=== PATIENT | male | born 1990 | race Caucasian/White ===

== ENCOUNTER 2018-02-03 18:12 | Emergency (ER) | payer SELFPAY | END 2018-02-03 19:00 | disposition home or self-care (01) | LOC: D.ER 18:12 | DX: J02.9 Acute pharyngitis, unspecified (principal); F17.200 Nicotine dependence, unspecified, uncomplicated ==

== ENCOUNTER 2018-05-28 12:40 | Emergency (ER) | payer BC ==
[~2018-05-28] VITALS: Ht 170.2 cm; Wt 75.0 kg
[2018-05-28 13:01] VITALS: Ht 170.2 cm; Wt 75.0 kg
[2018-05-28] MEDS ORDERED: MOTRIN600 MG (13:04)
[2018-05-28 13:29] LABS: BASOPHILS 0.9 % (0-2); EOSINOPHILS 9.4 % (0-7); HEMATOCRIT 40.5 % (42.0-54.0); HEMOGLOBIN 13.7 g/dL (13.5-17.5); IMMATURE GRANULOCYTES 0.2 % (0-5); LYMPHOCYTES 40.2 % (15-50); MCH 29.1 pg (26.0-34.0); MCHC 33.8 g/dL (31.0-37.0); MEAN PLATELET VOLUME 9.1 fL (7.4-10.4); MONOCYTES 7.6 % (2-11); NEUTROPHILS 41.7 % (40-80); PLATELET COUNT 224 10x3/uL (130-400); RBC 4.71 10x6/uL (4.20-6.10); RDW 13.2 % (11.5-14.5); WBC 6.5 10x3/uL (4.8-10.8)
[2018-05-28 13:46] LABS: ALBUMIN 3.6 g/dL (3.4-5.0); ALKALINE PHOSPHATASE 66 U/L (46-116); ALT (SGPT) 18 U/L (10-68); AMYLASE - SERUM 116 U/L (25-115); BILIRUBIN - TOTAL 0.23 mg/dL (0.2-1.3); CALC OSMOLALITY 275 mosm/kg (275-300); CALCIUM 8.8 mg/dL (8.5-10.1); CARBON DIOXIDE 33.2 mmol/L (21.0-32.0); CHLORIDE - SERUM 104 mmol/L (98-107); CREATININE - SERUM 0.9 mg/dL (0.6-1.3); GLUCOSE 92 mg/dL (74-106); LIPASE 195 U/L (73-393); POTASSIUM - SERUM 4.2 mmol/L (3.5-5.1); PROTEIN - SERUM 7.5 g/dL (6.4-8.2); SODIUM 139 mmol/L (136-145); UREA NITROGEN 6 mg/dL (7-18); eGFR NON AFRICAN AMERICAN > 90 mL/min (90-120)
[2018-05-28 18:41] LABS: APPEARANCE CLEAR (CLEAR); BILIRUBIN NEGATIVE (NEGATIVE); COLOR YELLOW (YELLOW); GLUCOSE NEGATIVE (NEGATIVE); KETONE NEGATIVE (NEGATIVE); NITRITE NEGATIVE (NEGATIVE); PROTEIN NEGATIVE (NEGATIVE); UROBILINOGEN NORMAL (NORMAL)
[2018-05-28] MEDS ORDERED: LOMOTIL TABLET1 TAB PO (18:44)
[2018-05-28] MEDS ORDERED: CIPRO500 MG PO (18:44)
[2018-05-28 19:00] VITALS: BP 124/71
== END 2018-05-28 19:00 | disposition home or self-care (01) ==
LOC: D.ER 12:40
PROVIDERS: Emergency Medicine
DX: A08.4 Viral intestinal infection, unspecified (principal); R10.9 Unspecified abdominal pain; F17.200 Nicotine dependence, unspecified, uncomplicated

== ENCOUNTER 2018-08-28 19:17 | Emergency (ER) | payer BC ==
[~2018-08-28] VITALS: Ht 170.2 cm; Wt 79.5 kg
[~2018-08-28 19:17] MED LIST: CIPRO500 MG PO; LOMOTIL TABLET1 TAB PO; MOTRIN600 MG
[2018-08-28 19:28] VITALS: Ht 170.2 cm; Wt 79.5 kg
[2018-08-28 20:32] VITALS: BP 135/87
== END 2018-08-28 20:29 | disposition home or self-care (01) ==
LOC: D.ER 19:17
DX: J06.9 Acute upper respiratory infection, unspecified (principal); F17.200 Nicotine dependence, unspecified, uncomplicated

== ENCOUNTER 2019-09-13 11:52 | Emergency (ER) | payer BC ==
[~2019-09-13] VITALS: Ht 170.2 cm; Wt 81.8 kg
[2019-09-13 11:55] VITALS: Ht 170.2 cm; Wt 81.8 kg
[2019-09-13] MEDS ORDERED: FLUTICASONE PRO16 GM NASAL (12:51)
[2019-09-13] MEDS ORDERED: ZYRTEC10 MG PO (12:51)
[2019-09-13] MEDS ORDERED: AUGMENTIN 875-11 TAB PO (12:51)
[2019-09-13 13:15] VITALS: BP 135/70
== END 2019-09-15 11:03 | disposition home or self-care (01) ==
LOC: D.ER 11:52
DX: H66.91 Otitis media, unspecified, right ear (principal); J30.9 Allergic rhinitis, unspecified

== ENCOUNTER 2019-12-12 10:48 | Emergency (ER) | payer BC ==
[~2019-12-12] VITALS: Ht 170.2 cm; Wt 84.1 kg
[~2019-12-12 10:48] MED LIST changes: +AUGMENTIN 875-11 TAB PO; +FLUTICASONE PRO16 GM NASAL; +ZYRTEC10 MG PO
[2019-12-12 10:57] VITALS: Ht 170.2 cm; Wt 84.1 kg
[2019-12-12 11:36] LABS: BASOPHILS 0.7 % (0-2); EOSINOPHILS 4.8 % (0-7); HEMOGLOBIN 14.7 g/dL (13.5-17.5); IMMATURE GRANULOCYTES 0.1 % (0-5); LYMPHOCYTES 38.1 % (15-50); MCH 29.8 pg (26.0-34.0); MCHC 34.2 g/dL (31.0-37.0); MCV 87.2 fL (80.0-100.0); MEAN PLATELET VOLUME 9.4 fL (7.4-10.4); MONOCYTES 8.3 % (2-11); PLATELET COUNT 229 10x3/uL (130-400); RBC 4.93 10x6/uL (4.20-6.10); WBC 7.5 10x3/uL (4.8-10.8)
[2019-12-12 11:43] LABS: CALC OSMOLALITY 271 mosm/kg (275-300); CALCIUM 8.9 mg/dL (8.5-10.1); CHLORIDE - SERUM 103 mmol/L (98-107); CREATININE - SERUM 0.9 mg/dL (0.6-1.3); GLUCOSE 104 mg/dL (74-106); SODIUM 137 mmol/L (136-145); UREA NITROGEN 8 mg/dL (7-18); eGFR NON AFRICAN AMERICAN > 90 mL/min (90-120)
[2019-12-12 11:52] LABS: ALBUMIN 3.9 g/dL (3.4-5.0); ALKALINE PHOSPHATASE 63 U/L (30-120); ALT (SGPT) 23 U/L (10-68); AMYLASE - SERUM 130 U/L (25-115); BILIRUBIN - TOTAL 0.16 mg/dL (0.2-1.3); LIPASE 419 U/L (73-393); PROTEIN - SERUM 7.7 g/dL (6.4-8.2); TROPONIN-I < 0.017 ng/mL (0.000-0.060)
[2019-12-12 12:10] LABS: BACTERIA FEW /hpf (NEGATIVE); BILIRUBIN NEGATIVE (NEGATIVE); EPITHELIAL CELLS OCC /hpf (0-5); GLUCOSE NEGATIVE (NEGATIVE); KETONE NEGATIVE (NEGATIVE); NITRITE NEGATIVE (NEGATIVE); UROBILINOGEN NORMAL (NORMAL); WHITE CELLS - URINE NSEEN /hpf (NEGATIVE)
[2019-12-12] MEDS ORDERED: ZOFRAN ODT4 MG/UDTAB PO (13:30)
[2019-12-12 14:09] VITALS: BP 144/80
== END 2019-12-12 13:54 | disposition home or self-care (01) ==
LOC: D.ER 10:48
PROVIDERS: Family Medicine
DX: R10.31 Right lower quadrant pain (principal)

== ENCOUNTER 2020-01-06 17:01 | Emergency (ER) | payer MEDICAID ==
[~2020-01-06] VITALS: Ht 170.2 cm; Wt 84.1 kg
[~2020-01-06 17:01] MED LIST changes: +ZOFRAN ODT4 MG/UDTAB PO
[2020-01-06 17:09] VITALS: Ht 170.2 cm; Wt 84.1 kg
[2020-01-06] MEDS ORDERED: AUGMENTIN 875-11 TAB PO (19:02)
[2020-01-06] MEDS ORDERED: FLOXIN 0.3 % OTI5 ML LEFT EAR (19:02)
[2020-01-06 19:12] VITALS: BP 133/85
== END 2020-01-06 19:10 | disposition home or self-care (01) ==
LOC: D.ER 17:01
DX: J01.90 Acute sinusitis, unspecified (principal); H60.92 Unspecified otitis externa, left ear; R05 Cough; R06.02 Shortness of breath; R50.9 Fever, unspecified; Z72.0 Tobacco use

== ENCOUNTER 2020-02-21 11:58 | Emergency (ER) | payer MEDICAID ==
[~2020-02-21] VITALS: Ht 170.2 cm; Wt 81.8 kg
[~2020-02-21 11:58] MED LIST changes: +FLOXIN 0.3 % OTI5 ML LEFT EAR
[2020-02-21 12:10] VITALS: Ht 170.2 cm; Wt 81.8 kg
[2020-02-21] MEDS ORDERED: AMOXICILLIN875 MG PO (12:45)
[2020-02-21 13:00] VITALS: BP 128/87
== END 2020-02-21 13:02 | disposition home or self-care (01) ==
LOC: D.ER 11:58
DX: J02.0 Streptococcal pharyngitis (principal); R05 Cough; Z72.0 Tobacco use

== ENCOUNTER 2020-06-03 16:46 | Emergency (ER) | payer MEDICAID ==
[~2020-06-03] VITALS: Ht 170.2 cm; Wt 77.3 kg
[~2020-06-03 16:46] MED LIST changes: +AMOXICILLIN875 MG PO
[2020-06-03 16:57] VITALS: BP 153/81; Ht 170.2 cm; Wt 77.3 kg
[2020-06-03] MEDS ORDERED: AMOXICILLIN500 M1 PO (17:25)
== END 2020-06-03 17:55 | disposition home or self-care (01) ==
LOC: D.ER 16:46
DX: J02.9 Acute pharyngitis, unspecified (principal); Z72.0 Tobacco use; R50.9 Fever, unspecified

== ENCOUNTER 2021-03-09 09:21 | Emergency (ER) | payer BC ==
[~2021-03-09] VITALS: Ht 170.2 cm; Wt 63.6 kg
[~2021-03-09 09:21] MED LIST changes: +ALBUTEROL SULF8.5 GM INH; +AMOXICILLIN500 M1 PO; +HYDROCODON-ACE1 EAC7 PO; +LOMOTIL 2.5-0.1 EAC1 PO; +MUCINEX DM ER1 EAC1 PO; +PROTONIX40 MG PO; +STERAPRED DS 1010 MG PO; +ZOFRAN4 MG PO
[2021-03-09 09:24] VITALS: Ht 170.2 cm; Wt 63.6 kg
[2021-03-09 09:51] LABS: BASOPHILS 0.5 % (0-2); EOSINOPHILS 0.7 % (0-7); HEMATOCRIT 39.7 % (42.0-54.0); HEMOGLOBIN 13.5 g/dL (13.5-17.5); LYMPHOCYTES 43.4 % (15-50); MCH 29.1 pg (26.0-34.0); MCV 85.5 fL (80.0-100.0); MEAN PLATELET VOLUME 7.3 fL (7.4-10.4); MONOCYTES 6.6 % (2-11); NEUTROPHILS 48.8 % (40-80); PLATELET COUNT 230 10x3/uL (130-400); RBC 4.64 10x6/uL (4.20-6.10); RDW 13.5 % (11.5-14.5); WBC 5.2 10x3/uL (4.8-10.8)
[2021-03-09 09:56] LABS: CALC OSMOLALITY 277 mosm/kg (275-300); CALCIUM 9.1 mg/dL (8.5-10.1); CARBON DIOXIDE 27.2 mmol/L (21.0-32.0); CHLORIDE - SERUM 105 mmol/L (98-107); CREATININE - SERUM 0.8 mg/dL (0.6-1.3); GLUCOSE 110 mg/dL (74-106); POTASSIUM - SERUM 3.8 mmol/L (3.5-5.1); SODIUM 140 mmol/L (136-145); UREA NITROGEN 7 mg/dL (7-18); eGFR NON AFRICAN AMERICAN > 90 mL/min (90-120)
[2021-03-09 10:02] LABS: ALKALINE PHOSPHATASE 64 U/L (30-120); ALT (SGPT) 22 U/L (10-68); BILIRUBIN - TOTAL 0.33 mg/dL (0.2-1.3); PROTEIN - SERUM 7.9 g/dL (6.4-8.2)
[2021-03-09 10:12] LABS: BILIRUBIN NEGATIVE (NEGATIVE); KETONE NEGATIVE mg/dL (< 1+); NITRITE NEGATIVE (NEGATIVE); SQUAMOUS EPITHELIAL <1 HPF (0-4); UROBILINOGEN NORMAL mg/dL (< 2); WHITE CELLS - URINE 1 HPF (0-1)
[2021-03-09] MEDS ORDERED: TORADOL10 MG PO (13:50)
[2021-03-09] MEDS ORDERED: HYDROCODON-ACE1 EAC7 PO (13:50)
[2021-03-09 14:34] VITALS: BP 138/72
== END 2021-03-09 14:10 | disposition home or self-care (01) ==
LOC: D.ER 09:21
PROVIDERS: Emergency Medicine
DX: N23 Unspecified renal colic (principal); R30.0 Dysuria; R31.9 Hematuria, unspecified